=== PATIENT | male | born 1970 | race African-American/Black ===

== ENCOUNTER 2021-07-10 12:41 | Emergency (ER) | payer MEDICAID ==
[~2021-07-10] VITALS: Ht 170.2 cm; Wt 63.0 kg
[2021-07-10] MEDS ORDERED: HYDROCODONE/ACETAMINOPHEN 5/325MG TABLET PO ONE (14:15)
[2021-07-10 14:44] VITALS: BP 120/85
[2021-07-10] MEDS ORDERED: HYDR-4001 MT ×2 (14:47→17:29)
[2021-07-10] MEDS ORDERED: IBUP-2029 MT ×2 (14:47→17:29)
== END 2021-07-10 15:39 | disposition home or self-care (01) ==
LOC: ER 12:50
DX: S62.101A Fracture of unspecified carpal bone, right wrist, initial encounter for closed fracture (principal); F41.9 Anxiety disorder, unspecified; E11.9 Type 2 diabetes mellitus without complications; X58.XXXA Exposure to other specified factors, initial encounter; Y93.89 Activity, other specified; Y92.89 Other specified places as the place of occurrence of the external cause; Y99.8 Other external cause status
CPT/HCPCS: 29125; 73110; 99283